=== PATIENT | male | born 1985 | race Caucasian/White ===

== ENCOUNTER → 2020-02-17 15:19 | Outpatient (CLI) | payer OTHER, SELFPAY ==
[2020-02-18 19:43] LABS: COVID19 Sendout Not Detected (Not Detect)
== END ==
PROVIDERS: Visit Provider Registered Nurse
DX: Z11.59 Encounter for screening for other viral diseases (principal)
CPT/HCPCS: 87635

== ENCOUNTER → 2020-05-07 14:44 | Outpatient (CLI) | payer OTHER, SELFPAY ==
--- NOTE | 2020-05-07 14:58 | DI.ECHO.S_ITS ---
Echocardiogram Report + + :Name: ISMAEL COLLAZO Study Date: 05/07/2020 Height: 67 in : :[facility] Weight: 198 lb : : Gender: Male BSA: 2.0 m2 : :: 1985 Age: 34 yrs BP: 152/80 mmHg: :Reason For Study: SYNCOPE : : Performed By: Kelly Houston : + + Interpretation Summary 1) Normal left ventricular thickness, size, wall motion, and systolic function (EF 60-65%). 2) Normal right ventricular size and function. 3) No significant valvular abnormalities. 4) No prior Echo available for comparison. ORDERING DOCTOR: BALJEET JETER P.A-C FAX: PHONE: Procedure: A two-dimensional transthoracic echocardiogram with color flow and Doppler was performed. The study quality was technically adequate. There is no prior echocardiogram noted for this patient. The patient was in normal sinus rhythm during the exam. The heart rate ranged between 70-90 bpm during the study. Left Ventricle: The left ventricle is normal in size and wall thickness. The ejection fraction is estimated to be 60-65%. Left ventricular systolic function is normal without focal wall motion abnormalities. Diastolic parameters suggest probable normal left ventricular diastolic function and normal filling pressures. Right Ventricle: The right ventricle is normal in size and function. Atria: The left atrial size is normal. Right atrial size is normal. The interatrial septum is intact with no evidence for an atrial septal defect. Mitral Valve: The mitral valve is normal in structure and function. There is trace mitral regurgitation. Aortic Valve: The aortic valve is trileaflet. The aortic valve opens well. There is no aortic valve stenosis. No aortic regurgitation is present. Tricuspid Valve: The tricuspid valve is normal in structure and function. Pulmonary artery pressures cannot be estimated because of the lack of a measurable TR jet velocity but the IVC suggests a CVP of around 3 mmHg. Pulmonic Valve: The pulmonic valve is normal in structure and function. There is no pulmonic valvular regurgitation. Great Vessels: The aortic root is normal size. The dimensions of the ascending aorta are normal. The IVC is of normal diameter and collapses greater than 50% with a sniff. This suggests a low right atrial pressure of 3 mm Hg. Pericardium/ Pleura There is no pericardial effusion. There is no pleural effusion. MMode/2D Measurements & Calculations LVIDd: 5.4 cm LVOT diam: 2.2 cm LVIDs: 3.4 cm Ao root diam: 3.3 cm FS: 37.8 % asc Aorta Diam: 2.9 cm EPSS: 1.00 cm Ao Arch Diam (Prox Trans): 2.9 cm IVSd: 0.61 cm LVPWd: 1.00 cm LV chaidez. diameter/BSA (cm/m^2): 2.7 LV sys. diameter/BSA (cm/m^2): 1.7 LA A2 area: 15.6 cm2 RA long axis: 4.8 cm LA A4 area: 15.3 cm2 RA area: 13.5 cm2 LA length (vol): 5.0 cm RA vol: 31.9 ml LA vol: 40.3 ml RA : 15.8 ml/m2 LA vol index: 20.0 ml/m2 IVC diam: 2.0 cm RVD1 (basal): 3.9 cm TAPSE: 2.6 cm Doppler Measurements & Calculations Ao V2 max: 141.7 cm/sec LVOT Max Varun: 90.9 cm/sec Ao V2 mean: 89.7 cm/sec LV V1 max P.3 mmHg Ao max P.0 mmHg LV V1 VTI: 17.1 cm Ao mean P.8 mmHg AVERY(I,D): 2.9 cm2 Ao V2 VTI: 23.5 cm AVERY(V,D): 2.5 cm2 sev ratio: 0.73 AVERY indexed to BSA (cm^2/m^2): 1.4 MV E max varun: 87.8 cm/sec PA V2 max: 102.0 cm/sec MV A max varun: 78.7 cm/sec PA V2 mean: 67.3 cm/sec MV E/A: 1.1 PA mean P.1 mmHg Med Peak E' Varun: 8.5 cm/sec PA pr(Accel): 10.9 mmHg E/E' med: 10.3 Lat Peak E' Varun: 15.1 cm/sec E/E' lat: 5.8 E/e' average: 8.1 MV dec time: 0.22 sec SV(LVOT): 67.8 ml Reading Physician:05:06 PM
== END ==
PROVIDERS: Referring Provider Physician Assistant Surgical; Visit Provider Physician Assistant Surgical
DX: R55 Syncope and collapse (principal)
CPT/HCPCS: 93306